=== PATIENT | female | born 1950 | race Asian ===

== ENCOUNTER 2017-07-19 06:29 | Day surgery (SDC) | payer OTHER ==
[2017-07-19] MEDS: BUPIVACAINE 0.25% (MPF) 30 ML INJ INJ
[~2017-07-19 06:29] MED LIST: CEFAZOLIN 2 GM/50 ML (PMX) 50 ML IVPB; SOD CHLORIDE 0.9% 1,000 ML IV
[2017-07-19] MEDS ORDERED: SOD CHLORIDE 0.9% 1,000 ML IV (06:30)
[2017-07-19] MEDS ORDERED: MEPERIDINE 25 MG INJ IV (09:30)
[2017-07-19] MEDS ORDERED: DIPHENHYDRAMINE 50 MG INJ IV (09:30)
[2017-07-19] MEDS ORDERED: HYDROmorphONE (0.2 MG/ML) 10ML SYG IV (09:30)
[2017-07-19] MEDS ORDERED: PROCHLORPERAZINE 10 MG INJ IV (09:30)
[2017-07-19] MEDS ORDERED: FENTAnyl 50 MCG/ML VIAL IV (09:30)
[2017-07-19] MEDS ORDERED: OXYCODONE/ACETAMINOPHEN (5/325) TAB PO (09:30)
[2017-07-19] MEDS ORDERED: PROPOFOL 20 ML (09:48)
[2017-07-19] MEDS ORDERED: FENTAnyl 50 MCG/ML VIAL (09:48)
[2017-07-19] MEDS ORDERED: LIDOCAINE 2% (SDV) 5 ML INJ (09:48)
[2017-07-19] MEDS ORDERED: FAMOTIDINE 20 MG INJ (10:02)
[2017-07-19] MEDS ORDERED: ONDANSETRON 4 MG INJ (10:02)
[2017-07-19] MEDS ORDERED: METOCLOPRAMIDE 10 MG INJ (10:02)
[2017-07-19] MEDS ORDERED: CEFAZOLIN 1 GM INJ (10:03)
[2017-07-19] MEDS ORDERED: EPHEDrine SULFATE 50 MG/5 ML SYG (10:09)
[2017-07-19] MEDS ORDERED: BUPIVACAINE 0.25% (MPF) 30 ML INJ (10:29)
[2017-07-19] MEDS ORDERED: IBUPROFEN 800 MG TAB PO (10:30)
[2017-07-19] MEDS: ONDANSETRON 4 MG INJ IV (11:04)
== END 2017-07-19 12:23 | disposition home or self-care (01) ==
LOC: SDS 06:29
DX: D36.14 Benign neoplasm of peripheral nerves and autonomic nervous system of thorax (principal); E11.9 Type 2 diabetes mellitus without complications; I10 Essential (primary) hypertension
CPT/HCPCS: 14001; 82962; 88307; 93005